=== PATIENT | female | born 1960 | race Two or more races ===

== ENCOUNTER 2024-09-19 14:49 | Outpatient (CLI) | payer MEDICARE | END 2024-09-19 14:50 | disposition home or self-care (01) | LOC: CSHMAMMO 14:49 | PROVIDERS: ATTEND Family Medicine | DX: Z12.39 Encounter for other screening for malignant neoplasm of breast (principal); N63.10 Unspecified lump in the right breast, unspecified quadrant; N64.89 Other specified disorders of breast | CPT/HCPCS: 77063; 77067 ==